=== PATIENT | female | born 1970 | race Caucasian/White ===

== ENCOUNTER → 2021-09-22 | Outpatient (CLI) | payer BC ==
[~2021-09-22] MED LIST: BNZT2T PO; CLONIDINE PO; DEXM10TA PO; ERGO400C PO; GARL400T13 PO; GUAN4TAB2 PO; IBP600T1 PO; LRT10T PO; MULT-608 PO; OXYC-12 PO; PS30T PO; ZPR40C PO
--- NOTE | 2021-09-22 09:49 | Diagnostic Imaging Report ---
INDICATION: Routine screening. COMPARISON: 01/29/2016 and 09/10/2009. TECHNIQUE: 2D and 3D bilateral screening mammography was performed with CAD. FINDINGS: Both breasts are heterogeneously dense, limiting the sensitivity of mammography. The patient has developed innumerable microcalcifications within the central right breast. 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 Magnification views are recommended. In addition, there has been development of clusters of microcalcifications in the outer left breast at mid depth. Additional views of these calcifications is recommended as well. No mass is identified. The axillae are unremarkable. IMPRESSION: Development of microcalcifications in both breasts. Magnification views and mediolateral views are recommended for further evaluation. ACR BI-RADS Category 0: Incomplete. (Needs additional imaging evaluation). Result letter will be mailed to the patient. Note: At least 10% of breast cancer is not imaged by mammography. Dictated by: Dictated on workstation # [id number]
== END ==
LOC: RAD 08:00
PROVIDERS: ATTEND Nurse Practitioner Family
DX: Z12.31 Encounter for screening mammogram for malignant neoplasm of breast (principal); R92.0 Mammographic microcalcification found on diagnostic imaging of breast
CPT/HCPCS: 77063; 77067

== ENCOUNTER → 2021-09-29 | Outpatient (CLI) | payer BC ==
--- NOTE | 2021-09-29 14:37 | Diagnostic Imaging Report ---
INDICATION: Bilateral breast calcifications. Patient presents for additional views. COMPARISON: Correlation is made with the recent screening study from 09/22/2021. TECHNIQUE: 2D and 3D bilateral diagnostic mammography was performed with CAC. This included magnification CC and ML views as well as conventional 90 degree lateral views. FINDINGS: Additional views show innumerable microcalcifications in the central upper right breast. Many of these appear to be pleomorphic. Features are concerning for DCIS. No mass is detected. There is also a cluster of calcifications in the outer left breast. These too show some pleomorphism, concerning for DCIS. No mass is detected. IMPRESSION: Bilateral breast calcifications, indeterminate. Tissue sampling is recommended. These would be amenable to a stereotactic biopsy approach. ACR BI-RADS Category 4: Suspicious abnormality. Result letter will be mailed to the patient. Note: At least 10% of breast cancer is not imaged by mammography. Dictated by: Dictated on workstation # [id number]
== END ==
LOC: RAD 12:45
PROVIDERS: ATTEND Nurse Practitioner Family
DX: R92.1 Mammographic calcification found on diagnostic imaging of breast (principal)
CPT/HCPCS: 77066; G0279; 77062

== ENCOUNTER → 2021-11-12 | Outpatient (CLI) | payer BC | LOC: CARD 09:30 | PROVIDERS: ATTEND Internal Medicine Hematology & Oncology | DX: Z51.81 Encounter for therapeutic drug level monitoring (principal); C50.411 Malignant neoplasm of upper-outer quadrant of right female breast; Z17.1 Estrogen receptor negative status [ER-]; Z79.899 Other long term (current) drug therapy | CPT/HCPCS: 93308 ==

== ENCOUNTER 2021-11-22 12:36 | Outpatient (RCR) | payer BC ==
[2021-11-19 13:00] VITALS: BP 142/71
[~2021-11-22] VITALS: Wt 122.7 kg
[~2021-11-22 12:36] MED LIST changes: +NS IV 1000 ML 1,000 ML IV ONE; +NS IV 1000 ML 1,000 ML ONE; +ONDANSETRON 4 MG/2 ML (SDV) Z0FRAN IV ONE; +PEGFILGRASTIM 6 MG/0.6ML (NEULASTA) SDC SC SCH
[2021-11-22 13:11] VITALS: BP 139/80
== END 2021-11-30 | disposition home or self-care (01) ==
LOC: SDC 12:36
PROVIDERS: ATTEND Internal Medicine Hematology & Oncology
DX: C50.111 Malignant neoplasm of central portion of right female breast (principal); Z17.1 Estrogen receptor negative status [ER-]; Z92.21 Personal history of antineoplastic chemotherapy
CPT/HCPCS: 96360; 96361; 96372

== ENCOUNTER 2021-11-26 11:41 | Outpatient (CLI) | payer BC ==
[~2021-11-26 11:41] MED LIST changes: -NS IV 1000 ML 1,000 ML IV ONE; -NS IV 1000 ML 1,000 ML ONE; -ONDANSETRON 4 MG/2 ML (SDV) Z0FRAN IV ONE; -PEGFILGRASTIM 6 MG/0.6ML (NEULASTA) SDC SC SCH
[2021-11-26 13:00] VITALS: BP 135/72
[2021-11-26 13:46] LABS: BASOPHILS % (AUTO) 0 % (0-10); EOSINOPHILS # (AUTO) 0.1 10^3/uL (0.0-0.3); EOSINOPHILS % (AUTO) 1 % (0-10); HEMATOCRIT 41 % (35-52); HEMOGLOBIN 13.5 g/dL (11.5-16.0); LYMPHOCYTES # (AUTO) 1.1 10^3/uL (1.0-4.0); LYMPHOCYTES % (AUTO) 9 % (12-44); MEAN CORPUSCULAR HEMOGLOBIN 29 pg (25-34); MEAN CORPUSCULAR HGB CONC 33 g/dL (32-36); MEAN CORPUSCULAR VOLUME 88 fL (80-99); MEAN PLATELET VOLUME 11.2 fL (9.0-12.2); MONOCYTES # (AUTO) 1.9 10^3/uL (0.0-1.0); MONOCYTES % (AUTO) 17 % (0-12); NEUTROPHILS % (AUTO) 59 % (42-75); PLATELET COUNT 188 10^3/uL (130-400); WHITE BLOOD COUNT 11.8 10^3/uL (4.3-11.0)
[2021-11-26 14:50] LABS: BAND NEUTROPHILS 21 %; BASOPHILS % (MANUAL) 0 %; EOSINOPHILS % (MANUAL) 3 %; LYMPHOCYTES % (MANUAL) 13 %; METAMYELOCYTES % 4 %; MONOCYTES % (MANUAL) 20 %; NEUTROPHILS % (MANUAL) 35 %; RBC MORPH NORMAL; REACTIVE LYMPHOCYTES 4 %
== END 2021-11-26 13:35 | disposition home or self-care (01) ==
LOC: SDC 11:41
PROVIDERS: ATTEND Internal Medicine Hematology & Oncology
DX: Z51.81 Encounter for therapeutic drug level monitoring (principal); C50.111 Malignant neoplasm of central portion of right female breast; Z17.1 Estrogen receptor negative status [ER-]; R50.9 Fever, unspecified; Z79.899 Other long term (current) drug therapy
CPT/HCPCS: 36415; 36591; 85007; 85027; 87040

== ENCOUNTER → 2021-12-08 | Outpatient (CLI) | payer BC ==
[2021-12-08 14:46] LABS: BASOPHILS % (AUTO) 0 % (0-10); EOSINOPHILS % (AUTO) 0 % (0-10); HEMATOCRIT 39 % (35-52); HEMOGLOBIN 12.8 g/dL (11.5-16.0); LYMPHOCYTES # (AUTO) 0.7 10^3/uL (1.0-4.0); LYMPHOCYTES % (AUTO) 8 % (12-44); MEAN CORPUSCULAR HEMOGLOBIN 29 pg (25-34); MEAN CORPUSCULAR HGB CONC 33 g/dL (32-36); MEAN CORPUSCULAR VOLUME 90 fL (80-99); MEAN PLATELET VOLUME 9.9 fL (9.0-12.2); MONOCYTES # (AUTO) 0.3 10^3/uL (0.0-1.0); MONOCYTES % (AUTO) 4 % (0-12); NEUTROPHILS # (AUTO) 7.2 10^3/uL (1.8-7.8); NEUTROPHILS % (AUTO) 87 % (42-75); PLATELET COUNT 336 10^3/uL (130-400); WHITE BLOOD COUNT 8.2 10^3/uL (4.3-11.0)
[2021-12-08 15:22] LABS: ALBUMIN 4.1 GM/DL (3.2-4.5); BILIRUBIN,TOTAL 0.3 MG/DL (0.1-1.0); CALCIUM 9.7 MG/DL (8.5-10.1); CREATININE SERUM 0.8 MG/DL (0.60-1.30); POTASSIUM 4.4 MMOL/L (3.6-5.0); TOTAL PROTEIN 7.2 GM/DL (6.4-8.2)
[2021-12-08 15:39] LABS: LYMPHOCYTES % (MANUAL) 10 %; MONOCYTES % (MANUAL) 3 %; NEUTROPHILS % (MANUAL) 87 %; RBC MORPH NORMAL
== END ==
LOC: LAB 14:11
PROVIDERS: ATTEND Internal Medicine Hematology & Oncology
DX: Z09 Encounter for follow-up examination after completed treatment for conditions other than malignant neoplasm (principal); C50.111 Malignant neoplasm of central portion of right female breast; Z17.1 Estrogen receptor negative status [ER-]
CPT/HCPCS: 36415; 80053; 85007; 85027

== ENCOUNTER 2021-12-10 12:25 | Outpatient (RCR) | payer BC ==
[~2021-12-10] VITALS: Ht 167.7 cm; Wt 128.1 kg
[2021-12-10] MEDS ORDERED: NS IV 1000 ML 1,000 ML IV ONE (12:43)
[2021-12-10] MEDS ORDERED: PEGFILGRASTIM 6 MG/0.6ML (NEULASTA) SDC SC SCH (12:43)
[2021-12-10] MEDS ORDERED: ONDANSETRON 4 MG/2 ML (SDV) Z0FRAN IV ONE (12:43)
[2021-12-10] MEDS ORDERED: ONDANSETRON 4 MG/2 ML (SDV) Z0FRAN IV PRN (12:45)
[2021-12-10 13:00] VITALS: BP 132/74
[2021-12-10 15:27] VITALS: BP 132/74
== END 2021-12-30 | disposition home or self-care (01) ==
LOC: SDC 12:25
PROVIDERS: ATTEND Internal Medicine Hematology & Oncology
DX: Z09 Encounter for follow-up examination after completed treatment for conditions other than malignant neoplasm (principal); C50.111 Malignant neoplasm of central portion of right female breast; E87.8 Other disorders of electrolyte and fluid balance, not elsewhere classified; Z17.1 Estrogen receptor negative status [ER-]
CPT/HCPCS: 96360; 96361; 96372

== ENCOUNTER → 2022-01-10 | Outpatient (CLI) | payer BC ==
--- NOTE | 2022-01-10 10:58 | Diagnostic Imaging Report ---
INDICATION: Right breast carcinoma. FINDINGS: Sonographic interrogation of the right breast was performed to evaluate treatment response. All four quadrants of the right breast as well as axilla was performed. There are some punctate echogenic structures in the right breast at the 10 and 11 o'clock locations, likely representing the microcalcifications noted mammographically. No discrete mass is identified. There is an enlarged lymph node in the right axilla measuring 2.3 x 1.0 x 1.5 cm. No fluid collections are seen. 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 No discrete breast mass is identified. ACR BI-RADS Category 6: Known biopsy proven malignancy. Dictated by: Dictated on workstation # [id number]
== END ==
LOC: RAD 09:01
PROVIDERS: ATTEND Internal Medicine Hematology & Oncology
DX: C50.111 Malignant neoplasm of central portion of right female breast (principal); Z17.1 Estrogen receptor negative status [ER-]
CPT/HCPCS: 76641; 96360

== ENCOUNTER 2022-01-19 15:03 | Outpatient (RCR) | payer BC, OTHER ==
[2022-01-19 15:36] LABS: BASOPHILS % (AUTO) 1 % (0-10); EOSINOPHILS % (AUTO) 0 % (0-10); HEMATOCRIT 38 % (35-52); HEMOGLOBIN 12.4 g/dL (11.5-16.0); LYMPHOCYTES # (AUTO) 0.8 X 10^3 (1.0-4.0); LYMPHOCYTES % (AUTO) 10 % (12-44); MEAN CORPUSCULAR HEMOGLOBIN 31 pg (25-34); MEAN CORPUSCULAR HGB CONC 33 g/dL (32-36); MEAN CORPUSCULAR VOLUME 93 fL (80-99); MEAN PLATELET VOLUME 9.5 fL (9.0-12.2); MONOCYTES # (AUTO) 0.1 X 10^3 (0.0-1.0); MONOCYTES % (AUTO) 1 % (0-12); NEUTROPHILS # (AUTO) 6.9 X 10^3 (1.8-7.8); NEUTROPHILS % (AUTO) 87 % (42-75); PLATELET COUNT 321 10^3/uL (130-400); WHITE BLOOD COUNT 7.9 10^3/uL (4.3-11.0)
[2022-01-19 15:38] LABS: ALBUMIN 4.1 GM/DL (3.2-4.5); POTASSIUM 4.7 MMOL/L (3.6-5.0)
[2022-01-19 15:39] LABS: CALCIUM 9.8 MG/DL (8.5-10.1)
[2022-01-19 15:40] LABS: TOTAL PROTEIN 7.2 GM/DL (6.4-8.2)
[2022-01-19 15:42] LABS: BILIRUBIN,TOTAL 0.4 MG/DL (0.1-1.0)
[2022-01-19 15:44] LABS: CREATININE SERUM 0.85 MG/DL (0.60-1.30)
[2022-01-19 16:22] LABS: LYMPHOCYTES % (MANUAL) 11 %; MONOCYTES % (MANUAL) 2 %; NEUTROPHILS % (MANUAL) 87 %; RBC MORPH NORMAL
== END 2022-01-30 | disposition home or self-care (01) ==
LOC: LAB 15:03
PROVIDERS: ATTEND Internal Medicine Hematology & Oncology
DX: C50.111 Malignant neoplasm of central portion of right female breast (principal); Z17.1 Estrogen receptor negative status [ER-]
CPT/HCPCS: 36415; 80053; 83036; 85007; 85027

== ENCOUNTER 2022-01-21 11:08 | Outpatient (RCR) | payer BC, OTHER ==
[2021-12-31 10:43] VITALS: BP 132/72
[2021-12-31] MEDS: PEGFILGRASTIM 6 MG/0.6ML (NEULASTA) SDC SC SCH (11:07)
[~2022-01-21] VITALS: Ht 167.7 cm; Wt 128.1 kg
[2022-01-21 11:00] VITALS: BP 123/66
[~2022-01-21 11:08] MED LIST changes: +NS IV 1000 ML 1,000 ML IV ONE; +NS IV 1000 ML 1,000 ML ONE; +ONDANSETRON 4 MG/2 ML (SDV) Z0FRAN IV PRN
[2022-01-21] MEDS ORDERED: NS IV 1000 ML 1,000 ML ONE (11:17)
[2022-01-21] MEDS: PEGFILGRASTIM 6 MG/0.6ML (NEULASTA) SDC SC SCH (11:32)
== END 2022-01-30 | disposition home or self-care (01) ==
LOC: SDC 11:08
PROVIDERS: ATTEND Internal Medicine Hematology & Oncology
DX: Z09 Encounter for follow-up examination after completed treatment for conditions other than malignant neoplasm (principal); C50.111 Malignant neoplasm of central portion of right female breast; E87.8 Other disorders of electrolyte and fluid balance, not elsewhere classified; Z17.1 Estrogen receptor negative status [ER-]
CPT/HCPCS: 96360; 96361; 96372

== ENCOUNTER 2022-02-11 14:13 | Outpatient (RCR) | payer BC, OTHER ==
[~2022-02-11] VITALS: Wt 128.1 kg
[2022-02-11 14:05] VITALS: BP 132/75
[~2022-02-11 14:13] MED LIST changes: -NS IV 1000 ML 1,000 ML IV ONE; -NS IV 1000 ML 1,000 ML ONE; -ONDANSETRON 4 MG/2 ML (SDV) Z0FRAN IV PRN
[2022-02-11] MEDS ORDERED: NS IV 1000 ML 1,000 ML ONE (14:23)
[2022-02-11] MEDS ORDERED: PEGFILGRASTIM 6 MG/0.6ML (NEULASTA) SDC SC SCH (14:30)
[2022-02-11] MEDS ORDERED: ONDANSETRON 4 MG/2 ML (SDV) Z0FRAN IVP PRN (14:30)
[2022-02-11] MEDS ORDERED: NS IV 1000 ML 1,000 ML IV SCH (14:30)
== END 2022-03-02 | disposition home or self-care (01) ==
LOC: SDC 14:13
PROVIDERS: ATTEND Internal Medicine Hematology & Oncology
DX: Z09 Encounter for follow-up examination after completed treatment for conditions other than malignant neoplasm (principal); C50.111 Malignant neoplasm of central portion of right female breast; E87.8 Other disorders of electrolyte and fluid balance, not elsewhere classified; Z17.1 Estrogen receptor negative status [ER-]
CPT/HCPCS: 96360; 96361; 96372

== ENCOUNTER → 2022-02-18 | Outpatient (CLI) | payer BC | LOC: CARD 11:16 | PROVIDERS: ATTEND Internal Medicine Hematology & Oncology | DX: Z51.11 Encounter for antineoplastic chemotherapy (principal); I51.7 Cardiomegaly; C50.511 Malignant neoplasm of lower-outer quadrant of right female breast | CPT/HCPCS: 93306 ==

== ENCOUNTER → 2022-03-02 | Outpatient (RCR) | payer BC, OTHER ==
[2022-02-09 14:33] LABS: BASOPHILS # (AUTO) 0.1 10^3/uL (0.0-0.1); BASOPHILS % (AUTO) 1 % (0-10); EOSINOPHILS # (AUTO) 0.2 10^3/uL (0.0-0.3); EOSINOPHILS % (AUTO) 2 % (0-10); HEMATOCRIT 37 % (35-52); HEMOGLOBIN 12.2 g/dL (11.5-16.0); LYMPHOCYTES # (AUTO) 0.9 10^3/uL (1.0-4.0); LYMPHOCYTES % (AUTO) 10 % (12-44); MEAN CORPUSCULAR HEMOGLOBIN 31 pg (25-34); MEAN CORPUSCULAR HGB CONC 33 g/dL (32-36); MEAN CORPUSCULAR VOLUME 95 fL (80-99); MEAN PLATELET VOLUME 9.4 fL (9.0-12.2); MONOCYTES # (AUTO) 0.2 10^3/uL (0.0-1.0); MONOCYTES % (AUTO) 2 % (0-12); NEUTROPHILS # (AUTO) 7.7 10^3/uL (1.8-7.8); NEUTROPHILS % (AUTO) 85 % (42-75); PLATELET COUNT 250 10^3/uL (130-400); WHITE BLOOD COUNT 9.1 10^3/uL (4.3-11.0)
[2022-02-09 14:54] LABS: ALBUMIN 4.1 GM/DL (3.2-4.5); BILIRUBIN,TOTAL 0.5 MG/DL (0.1-1.0); CALCIUM 9.9 MG/DL (8.5-10.1); CREATININE SERUM 0.82 MG/DL (0.60-1.30); POTASSIUM 4.7 MMOL/L (3.6-5.0); TOTAL PROTEIN 7.1 GM/DL (6.4-8.2)
[2022-03-02 11:25] LABS: BASOPHILS % (AUTO) 1 % (0-10); EOSINOPHILS # (AUTO) 0.1 10^3/uL (0.0-0.3); EOSINOPHILS % (AUTO) 3 % (0-10); HEMATOCRIT 33 % (35-52); HEMOGLOBIN 10.9 g/dL (11.5-16.0); LYMPHOCYTES # (AUTO) 1.2 10^3/uL (1.0-4.0); LYMPHOCYTES % (AUTO) 23 % (12-44); MEAN CORPUSCULAR HEMOGLOBIN 32 pg (25-34); MEAN CORPUSCULAR HGB CONC 33 g/dL (32-36); MEAN CORPUSCULAR VOLUME 98 fL (80-99); MEAN PLATELET VOLUME 9.3 fL (9.0-12.2); MONOCYTES # (AUTO) 0.5 10^3/uL (0.0-1.0); MONOCYTES % (AUTO) 9 % (0-12); NEUTROPHILS # (AUTO) 3.4 10^3/uL (1.8-7.8); NEUTROPHILS % (AUTO) 65 % (42-75); PLATELET COUNT 186 10^3/uL (130-400); WHITE BLOOD COUNT 5.3 10^3/uL (4.3-11.0)
[2022-03-02 11:42] LABS: ALBUMIN 3.9 GM/DL (3.2-4.5); POTASSIUM 4.1 MMOL/L (3.6-5.0)
[2022-03-02 11:43] LABS: CALCIUM 9.3 MG/DL (8.5-10.1)
[2022-03-02 11:44] LABS: TOTAL PROTEIN 6.8 GM/DL (6.4-8.2)
[2022-03-02 11:46] LABS: BILIRUBIN,TOTAL 0.5 MG/DL (0.1-1.0)
[2022-03-02 11:48] LABS: CREATININE SERUM 0.81 MG/DL (0.60-1.30)
== END | disposition home or self-care (01) ==
LOC: LAB 02-09 14:05
PROVIDERS: ATTEND Internal Medicine Hematology & Oncology
DX: C50.111 Malignant neoplasm of central portion of right female breast (principal); Z17.1 Estrogen receptor negative status [ER-]
CPT/HCPCS: 36415; 80053; 85025

== ENCOUNTER 2022-03-04 13:40 | Outpatient (RCR) | payer BC, OTHER ==
[2022-03-04 13:45] VITALS: BP 137/77
[2022-03-04] MEDS ORDERED: ONDANSETRON 4 MG/2 ML (SDV) Z0FRAN IVP PRN (14:00)
[2022-03-04] MEDS ORDERED: PEGFILGRASTIM 6 MG/0.6ML (NEULASTA) SDC SC SCH (14:00)
[2022-03-04] MEDS ORDERED: NS IV 1000 ML 1,000 ML IV SCH (14:00)
== END 2022-04-01 | disposition home or self-care (01) ==
LOC: SDC 13:40
PROVIDERS: ATTEND Internal Medicine Hematology & Oncology
DX: Z09 Encounter for follow-up examination after completed treatment for conditions other than malignant neoplasm (principal); C50.111 Malignant neoplasm of central portion of right female breast; E87.8 Other disorders of electrolyte and fluid balance, not elsewhere classified; Z17.1 Estrogen receptor negative status [ER-]
CPT/HCPCS: 96360; 96361; 96372

== ENCOUNTER 2022-03-24 10:47 | Outpatient (RCR) | payer BC, OTHER ==
[2022-03-24 10:57] LABS: BASOPHILS % (AUTO) 1 % (0-10); EOSINOPHILS # (AUTO) 0.1 10^3/uL (0.0-0.3); EOSINOPHILS % (AUTO) 2 % (0-10); HEMATOCRIT 33 % (35-52); HEMOGLOBIN 10.9 g/dL (11.5-16.0); LYMPHOCYTES # (AUTO) 1.2 10^3/uL (1.0-4.0); LYMPHOCYTES % (AUTO) 22 % (12-44); MEAN CORPUSCULAR HEMOGLOBIN 33 pg (25-34); MEAN CORPUSCULAR HGB CONC 33 g/dL (32-36); MEAN CORPUSCULAR VOLUME 101 fL (80-99); MEAN PLATELET VOLUME 10.1 fL (9.0-12.2); MONOCYTES # (AUTO) 0.5 10^3/uL (0.0-1.0); MONOCYTES % (AUTO) 9 % (0-12); NEUTROPHILS # (AUTO) 3.5 10^3/uL (1.8-7.8); NEUTROPHILS % (AUTO) 66 % (42-75); PLATELET COUNT 182 10^3/uL (130-400); WHITE BLOOD COUNT 5.4 10^3/uL (4.3-11.0)
[2022-03-24 11:23] LABS: ALBUMIN 3.9 GM/DL (3.2-4.5); BILIRUBIN,TOTAL 0.5 MG/DL (0.1-1.0); CALCIUM 9.6 MG/DL (8.5-10.1); CREATININE SERUM 0.82 MG/DL (0.60-1.30); POTASSIUM 4.3 MMOL/L (3.6-5.0)
== END 2022-04-01 | disposition home or self-care (01) ==
LOC: LAB 10:47
PROVIDERS: ATTEND Internal Medicine Hematology & Oncology
DX: C50.111 Malignant neoplasm of central portion of right female breast (principal); Z17.1 Estrogen receptor negative status [ER-]
CPT/HCPCS: 36415; 80053; 85025

== ENCOUNTER 2022-04-13 15:32 | Outpatient (RCR) | payer BC, OTHER ==
[2022-04-13 15:56] LABS: BASOPHILS % (AUTO) 1 % (0-10); EOSINOPHILS # (AUTO) 0.3 10^3/uL (0.0-0.3); EOSINOPHILS % (AUTO) 6 % (0-10); HEMATOCRIT 36 % (35-52); HEMOGLOBIN 11.5 g/dL (11.5-16.0); LYMPHOCYTES # (AUTO) 1.2 10^3/uL (1.0-4.0); LYMPHOCYTES % (AUTO) 20 % (12-44); MEAN CORPUSCULAR HEMOGLOBIN 32 pg (25-34); MEAN CORPUSCULAR HGB CONC 32 g/dL (32-36); MEAN CORPUSCULAR VOLUME 101 fL (80-99); MEAN PLATELET VOLUME 9.7 fL (9.0-12.2); MONOCYTES # (AUTO) 0.6 10^3/uL (0.0-1.0); MONOCYTES % (AUTO) 9 % (0-12); NEUTROPHILS % (AUTO) 65 % (42-75); PLATELET COUNT 232 10^3/uL (130-400); WHITE BLOOD COUNT 6.1 10^3/uL (4.3-11.0)
[2022-04-13 16:21] LABS: ALBUMIN 3.9 GM/DL (3.2-4.5)
[2022-04-13 16:22] LABS: POTASSIUM 4.1 MMOL/L (3.6-5.0)
[2022-04-13 16:23] LABS: CALCIUM 9.4 MG/DL (8.5-10.1)
[2022-04-13 16:24] LABS: TOTAL PROTEIN 6.9 GM/DL (6.4-8.2)
[2022-04-13 16:26] LABS: BILIRUBIN,TOTAL 0.3 MG/DL (0.1-1.0)
[2022-04-13 16:28] LABS: CREATININE SERUM 0.87 MG/DL (0.60-1.30)
== END 2022-05-02 | disposition home or self-care (01) ==
LOC: LAB 15:32
PROVIDERS: ATTEND Internal Medicine Hematology & Oncology
DX: C50.111 Malignant neoplasm of central portion of right female breast (principal); Z17.1 Estrogen receptor negative status [ER-]
CPT/HCPCS: 36415; 80053; 85025

== ENCOUNTER 2023-02-20 21:13 | Emergency (ER) | payer BC ==
[~2023-02-20] VITALS: Ht 167.7 cm; Wt 108.8 kg
[2023-02-20 22:19] LABS: BASOPHILS # (AUTO) 0.1 10^3/uL (0.0-0.1); BASOPHILS % (AUTO) 1 % (0-10); EOSINOPHILS # (AUTO) 0.3 10^3/uL (0.0-0.3); EOSINOPHILS % (AUTO) 3 % (0-10); HEMATOCRIT 43 % (35-52); HEMOGLOBIN 14.3 g/dL (11.5-16.0); LYMPHOCYTES # (AUTO) 0.9 10^3/uL (1.0-4.0); LYMPHOCYTES % (AUTO) 9 % (12-44); MEAN CORPUSCULAR HEMOGLOBIN 29 pg (25-34); MEAN CORPUSCULAR HGB CONC 34 g/dL (32-36); MEAN CORPUSCULAR VOLUME 88 fL (80-99); MEAN PLATELET VOLUME 10.1 fL (9.0-12.2); MONOCYTES # (AUTO) 0.5 10^3/uL (0.0-1.0); MONOCYTES % (AUTO) 5 % (0-12); NEUTROPHILS # (AUTO) 8.6 10^3/uL (1.8-7.8); NEUTROPHILS % (AUTO) 83 % (42-75); PLATELET COUNT 299 10^3/uL (130-400); WHITE BLOOD COUNT 10.3 10^3/uL (4.3-11.0)
[2023-02-20 22:26] LABS: ALBUMIN 4.2 GM/DL (3.2-4.5); POTASSIUM 4.2 MMOL/L (3.6-5.0)
[2023-02-20 22:27] LABS: CALCIUM 9.8 MG/DL (8.5-10.1)
[2023-02-20 22:29] LABS: TOTAL PROTEIN 7.3 GM/DL (6.4-8.2)
[2023-02-20 22:30] LABS: BILIRUBIN,TOTAL 0.5 MG/DL (0.1-1.0)
[2023-02-20 22:32] LABS: CREATININE SERUM 0.93 MG/DL (0.60-1.30)
[2023-02-20 22:35] LABS: MAGNESIUM 1.9 MG/DL (1.6-2.4)
[2023-02-20 22:45] LABS: CLARITY,URINE SLIGHTLY CLOUDY; COLOR,URINE YELLOW; PH,URINE 5.5 (5-9); PROTEIN,URINE NEGATIVE (NEGATIVE)
[2023-02-20 22:46] LABS: BACTERIA,URINE TRACE /HPF; BILIRUBIN,URINE 1+ (NEGATIVE); GLUCOSE, URINE (UA) NEGATIVE (NEGATIVE); KETONES,URINE 2+ (NEGATIVE); LEUKOCYTE ESTERASE ,URINE TRACE (NEGATIVE); NITRITE,URINE NEGATIVE (NEGATIVE); SQUAMOUS EPITHELIAL CELL,UR >50 /HPF; WBC,URINE 0-2 /HPF
--- NOTE | 2023-02-20 23:41 | ED Abdominal Pain ---
General Chief Complaint: Abdominal/GI Problems Stated Complaint: STOMACH PAIN Nursing Triage Note: PATIENT STATES THAT SHE HAD HER PORT REMOVED FROM BREAST CANCER TREATMENT "ABOUT TWO WEEKS AGO" AND SINCE THEN SHE HAS NOT HAD A "GOOD BOWEL MOVEMENT". SHE DESCRIBES THEM SMALL, SOFT AND THIN. SHE STATES THAT SHE IS PASSING GAS. ABOUT 1100 TODAY WAS THE LAST TIME THAT SHE ATE AND SHE BEGAN TO EXPERIENCE PAIN IN HER RIGHT UPPER QUAD THAT RADIATES ACROSS HER UPPER ABD TO THE MIDDLE. SHE HAS HAD HER GALLBLADDER REMOVED BUT STATES THAT SHE STILL HAS HER APPENDIX. Source of Information: Patient Exam Limitations: No Limitations History of Present Illness Date Seen by Provider: Feb 20, 2023 Time Seen by Provider: 22:15 Allergies and Home Medications Allergies Coded Allergies: promethazine (Verified Allergy, Unknown, 03/28/07) Patient Home Medication List Home Medication List Reviewed: Yes Cholecalciferol (Vitamin D) 400 Unit Capsule, 400 UNIT PO DAILY, (Reported) Entered as Reported by: JENNIE HERRING on 03/14/11 0950 Famotidine (Pepcid) 20 Mg Tablet, 20 MG PO BID Prescribed by: EDMUND MCGARRY on 02/21/23 0150 Garlic (Garlique) 400 Mg Tablet.dr, 400 MG PO DAILY, (Reported) Entered as Reported by: JENNIE HERRING on 03/14/11 0950 Ibuprofen (Motrin) 600 Mg Tab, 600 MG PO Q6H PRN, (Reported) Entered as Reported by: QUINTEN KHAN on 03/18/11 1508 Loratadine (Claritin) 10 Mg Tab, 10 MG PO DAILY, (Reported) Entered as Reported by: JENNIE HRERING on 03/14/11 0950 Multivitamins (Multiple Vitamin) 1 Tab Tablet, 1 TAB PO DAILY, (Reported) Entered as Reported by: JENNIE HERRING on 03/14/11 0950 Ondansetron (Ondansetron Odt) 4 Mg Tab.rapdis, 4 MG SL Q4H PRN for NAUSEA/V OMITING Prescribed by: EDMUND MCGARRY on 02/21/23 0150 Oxycodone Hcl/Acetaminophen (Percocet 5-325 Mg Tablet) 1 Each Tablet, 1-2 EACH PO Q4H PRN, (Reported) Entered as Reported by: QUINTEN KHAN on 03/18/11 1508 Pseudoephedrine Hcl (Sudafed) 30 Mg Tab, 1 TAB PO DAILY PRN, (Reported) Entered as Reported by: JENNIE HERRING on 03/14/11 0950 Past Aecitnm-Ficuha-Briszq Hx Past Medical History Reproductive Disorders: No Physical Exam Vital Signs Vital Signs - First Documented 02/20/23 21:25 Temp 36.9 Pulse 89 Resp 20 B/P (MAP) 154/106 (122) Pulse Ox 97 O2 Delivery Room Air Capillary Refill : Less Than 3 Seconds Height/Weight/BMI Height: '" Weight: lbs. oz. kg; 38.00 BMI Method: Progress/Results/Core Measures Results/Orders Lab Results Laboratory Tests Test 02/20/23 21:30 02/20/23 22:31 Range/Units White Blood Count 10.3 4.3-11.0 10^3/uL Red Blood Count 4.86 3.80-5.11 10^6/uL Hemoglobin 14.3 11.5-16.0 g/dL Hematocrit 43 35-52 % Mean Corpuscular Volume 88 80-99 fL Mean Corpuscular Hemoglobin 29 25-34 pg Mean Corpuscular Hemoglobin Concent 34 32-36 g/dL Red Cell Distribution Width 13.1 10.0-14.5 % Platelet Count 299 130-400 10^3/uL Mean Platelet Volume 10.1 9.0-12.2 fL Immature Granulocyte % (Auto) 0 % Neutrophils (%) (Auto) 83 H 42-75 % Lymphocytes (%) (Auto) 9 L 12-44 % Monocytes (%) (Auto) 5 0-12 % Eosinophils (%) (Auto) 3 0-10 % Basophils (%) (Auto) 1 0-10 % Neutrophils # (Auto) 8.6 H 1.8-7.8 10^3/uL Lymphocytes # (Auto) 0.9 L 1.0-4.0 10^3/uL Monocytes # (Auto) 0.5 0.0-1.0 10^3/uL Eosinophils # (Auto) 0.3 0.0-0.3 10^3/uL Basophils # (Auto) 0.1 0.0-0.1 10^3/uL Immature Granulocyte # (Auto) 0.0 0.0-0.1 10^3/uL Sodium Level 141 135-145 MMOL/L Potassium Level 4.2 3.6-5.0 MMOL/L Chloride Level 107 98-107 MMOL/L Carbon Dioxide Level 22 21-32 MMOL/L Anion Gap 12 5-14 MMOL/L Blood Urea Nitrogen 10 7-18 MG/DL Creatinine 0.93 0.60-1.30 MG/DL Estimat Glomerular Filtration Rate 73 BUN/Creatinine Ratio 11 Glucose Level 121 H 70-105 MG/DL Calcium Level 9.8 8.5-10.1 MG/DL Corrected Calcium 9.6 8.5-10.1 MG/DL Magnesium Level 1.9 1.6-2.4 MG/DL Total Bilirubin 0.5 0.1-1.0 MG/DL Aspartate Amino Transf (AST/SGOT) 17 5-34 U/L Alanine Aminotransferase (ALT/SGPT) 23 0-55 U/L Alkaline Phosphatase 64 40-136 U/L Total Protein 7.3 6.4-8.2 GM/DL Albumin 4.2 3.2-4.5 GM/DL Lipase 15 8-78 U/L Urine Color YELLOW Urine Clarity SLIGHTLY CLOUDY Urine pH 5.5 5-9 Urine Specific Minto >=1.030 1.016-1.022 Urine Protein NEGATIVE NEGATIVE Urine Glucose (UA) NEGATIVE NEGATIVE Urine Ketones 2+ H NEGATIVE Urine Nitrite NEGATIVE NEGATIVE Urine Bilirubin 1+ H NEGATIVE Urine Urobilinogen 0.2 < = 1.0 MG/DL Urine Leukocyte Esterase TRACE H NEGATIVE Urine RBC (Auto) NEGATIVE NEGATIVE Urine RBC NONE /HPF Urine WBC 0-2 /HPF Urine Squamous Epithelial Cells >50 H /HPF Urine Crystals NONE /LPF Urine Bacteria TRACE /HPF Urine Casts NONE /LPF Urine Mucus LARGE H /LPF Urine Culture Indicated NO My Orders Orders - EDMUND YUN MD Cbc With Automated Diff (02/20/23 22:14) Comprehensive Metabolic Panel (02/20/23 22:14) Lipase (02/20/23 22:14) Magnesium (02/20/23 22:14) Ua Culture If Indicated (02/20/23 22:14) Ed Iv/Invasive Line Start (02/20/23 22:14) Ct Abdomen/Pelvis W (02/20/23 23:51) Ondansetron Injection (Zofran Injectio (02/21/23 00:00) Ketorolac Injection (Ketorolac Injection (02/21/23 01:45) Pantoprazole Injection (Protonix Injecti (02/21/23 01:45) Medications Given in ED Current Medications Medications Dose Ordered Sig/Merritt Route Start Time Stop Time Status Last Admin Dose Admin Iohexol 100 ml ONCE ONCE IV 02/21/23 01:45 02/21/23 01:46 DC 02/21/23 01:46 80 ML Ketorolac Tromethamine 30 mg ONCE ONCE IVP 02/21/23 01:45 02/21/23 01:46 DC 02/21/23 02:03 30 MG Ondansetron HCl 4 mg ONCE ONCE IVP 02/21/23 00:00 02/21/23 00:01 DC 02/21/23 00:09 4 MG Pantoprazole 40 mg ONCE ONCE IV 02/21/23 01:45 02/21/23 01:46 DC 02/21/23 02:03 40 MG Sodium Chloride 100 ml ONCE ONCE IV 02/21/23 01:45 02/21/23 01:46 DC 02/21/23 01:46 80 ML Vital Signs/I&O 02/20/23 02/21/23 21:25 02:08 Temp 36.9 36.8 Pulse 89 77 Resp 20 18 B/P (MAP) 154/106 (122) 145/90 Pulse Ox 97 97 O2 Delivery Room Air Room Air Blood Pressure Mean: 122 Departure Impression Primary Impression: Right upper quadrant pain Additional Impression: Nausea Disposition: 01 HOME, SELF-CARE Condition: Improved Admissions Decision to Admit Reason: Admit from ER (General) Departure-Patient Inst. Decision time for Depature: 01:47 Referrals: NICOLE FRANCISCO MD (PCP/Family) Primary Care Physician Patient Instructions: Abdominal Pain, Adult ED Add. Discharge Instructions: Drink plenty of clear liquids to stay well-hydrated. Adhere to a clear liquid diet only for at least the next 12 hours. Then if you are feeling improved, gradually advance your diet with small quantities of bland food as tolerated. Start taking an antacid such as Pepcid (famotidine). Continue for the next 1 to 2 weeks and as long as you have heartburn or excessive belching. You may take Tylenol (acetaminophen) up to 1000 mg every 6 hours as needed for pain. Follow-up with your primary care provider soon as possible. Return to the emergency room if you have worsening symptoms despite following these instructions. You may use Zofran as prescribed for nausea and vomiting. All discharge instructions reviewed with patient and/or family. Voiced under standing. Scripts Famotidine (Pepcid) 20 Mg Tablet 20 MG PO BID, #60 TAB Prov: EDMUND YUN MD 02/21/23 Ondansetron (Ondansetron Odt) 4 Mg Tab.rapdis 4 MG SL Q4H PRN for NAUSEA/VOMITING, #10 TAB Prov: EDMUND YUN MD 02/21/23 EDMUND YUN MD Feb 20, 2023 23:41
[2023-02-21] MEDS ORDERED: ONDANSETRON INJECTION 4 MG/2 ML (SDV) IVP ONE
[2023-02-21] MEDS ORDERED: IOHEXOL 350 MG/ML 100 ML (OMNIPAQUE 350) VIAL IV ONE (01:45)
[2023-02-21] MEDS ORDERED: KETOROLAC INJ 30 MG/ML VIAL IVP ONE (01:45)
[2023-02-21] MEDS ORDERED: HOLD METFORMIN - RECEIVED CONTRAST 20 ML VIAL IV SCH (01:45)
[2023-02-21] MEDS ORDERED: PANTOPRAZOLE INJECTION 40 MG VIAL IV ONE (01:45)
[2023-02-21] MEDS ORDERED: NS 100 ML (IVPB) BAG IV ONE (01:45)
[2023-02-21] MEDS ORDERED: ONDA4TAB11 SL (01:50)
[2023-02-21] MEDS ORDERED: FAMO-119 PO (01:50)
[2023-02-21 02:08] VITALS: BP 145/90
--- NOTE | 2023-02-21 07:17 | Diagnostic Imaging Report ---
PROCEDURE: CT abdomen and pelvis with contrast. TECHNIQUE: Multiple contiguous axial images were obtained through the abdomen and pelvis after administration of intravenous contrast. Auto Exposure Controls were utilized during the CT exam to meet ALARA standards for radiation dose reduction. All CT scans use one or more of the following dose optimizing techniques: automated exposure control, MA and/or KvP adjustment based on patient size and exam type or iterative reconstruction. INDICATION: 52-year-old female, right upper quadrant pain. CORRELATION STUDY: None. FINDINGS: LOWER THORAX: Minimal basilar atelectasis. Partially visualized bilateral breast implants. Heart size mildly enlarged. Small esophageal hernia. LIVER: Enlarged 20 cm mild steatosis. GALLBLADDER: Cholecystectomy. SPLEEN: Calcified granuloma, otherwise unremarkable. PANCREAS: Unremarkable. ADRENAL GLANDS: Unremarkable. KIDNEYS: Normal configuration. No calcification or obstruction. Small calcifications in the pelvis including a smaller one immediately adjacent to distal right ureter. However, no definitive ureteral calcification. No obstructive uropathy. ABDOMINAL AORTA: Unremarkable, nonaneurysmal. GASTROINTESTINAL TRACT: Fluid-filled loops of small bowel are noted slightly prominent. Definitive transition or high degree obstruction not demonstrated. A small stool in the colon. No significant ascites. URINARY BLADDER: Unremarkable. REPRODUCTIVE: Hysterectomy. OSSEOUS STRUCTURES: No acute abnormality. OTHER: None. IMPRESSION: 1. No findings to suggest nephroureterolithiasis or obstructive uropathy. 2. A few mildly distended fluid-filled loops of small bowel. Could reflect enteritis or lower grade partial obstruction. 3. Hepatomegaly with steatosis. 4. Cholecystectomy, hysterectomy. Initial report was provided by [facility]. Dictated by: Dictated on workstation # [id number]
== END 2023-02-21 02:13 | disposition home or self-care (01) ==
LOC: EDUNIT# 21:13 → ER 21:15
DX: R10.11 Right upper quadrant pain (principal); R11.0 Nausea; Z28.310 Unvaccinated for COVID-19
CPT/HCPCS: 36415; 74177; 80053; 81000; 83690; 83735; 85025